=== PATIENT | female | born 1955 | race Caucasian/White ===

== ENCOUNTER 2019-12-11 20:28 | Emergency (ER) | payer BC ==
[~2019-12-11] VITALS: Ht 167.6 cm; Wt 65.9 kg
[2019-12-11 20:29] VITALS: Ht 167.6 cm; Wt 65.9 kg
[2019-12-11 20:45] LABS: BASOPHILS 0.6 % (0-2); EOSINOPHILS 1.2 % (0-7); HEMATOCRIT 47.7 % (36.0-48.0); HEMOGLOBIN 16.1 g/dL (12-16); IMMATURE GRANULOCYTES 0.5 % (0-5); LYMPHOCYTES 25.2 % (15-50); MCH 30.1 pg (26.0-34.0); MCHC 33.8 g/dL (31.0-37.0); MCV 89.3 fL (80.0-100.0); MEAN PLATELET VOLUME 9.7 fL (7.4-10.4); MONOCYTES 8.4 % (2-11); NEUTROPHILS 64.1 % (40-80); PLATELET COUNT 327 10x3/uL (130-400); RBC 5.34 10x6/uL (4.00-5.40); WBC 12.3 10x3/uL (4.8-10.8)
[2019-12-11 20:54] LABS: APTT 22.8 SECONDS (22.8-39.4); CALC OSMOLALITY 277 mosm/kg (275-300); CALCIUM 9.7 mg/dL (8.5-10.1); CHLORIDE - SERUM 102 mmol/L (98-107); CREATININE - SERUM 0.8 mg/dL (0.6-1.3); GLUCOSE 105 mg/dL (74-106); INR 0.8 (0.85-1.17); POTASSIUM - SERUM 3.8 mmol/L (3.5-5.1); PROTIME 11.1 SECONDS (11.6-15.0); SODIUM 138 mmol/L (136-145); UREA NITROGEN 17 mg/dL (7-18); eGFR NON AFRICAN AMERICAN 75 mL/min (90-120)
[2019-12-11 21:11] LABS: ALKALINE PHOSPHATASE 105 U/L (30-120); ALT (SGPT) 22 U/L (10-68); CKMB 0.7 U/L (0.0-3.6); CREATINE KINASE 37 UL (21-215); MAGNESIUM - SERUM 2.1 mg/dL (1.8-2.4); PROTEIN - SERUM 7.4 g/dL (6.4-8.2); THYROID STIMULATING HORMONE 1.75 uIU/mL (0.36-3.74)
[2019-12-11 21:15] LABS: TROPONIN-I < 0.017 ng/mL (0.000-0.060)
[2019-12-11 22:14] VITALS: BP 125/70
== END 2019-12-11 22:17 | disposition home or self-care (01) ==
LOC: EDBD 20:28 → D.ER 20:28
PROVIDERS: Family Medicine
DX: R51 Headache (principal); R10.13 Epigastric pain; F43.9 Reaction to severe stress, unspecified; I10 Essential (primary) hypertension; K21.9 Gastro-esophageal reflux disease without esophagitis